=== PATIENT | female | born 1960 ===

== ENCOUNTER 2016-03-03 02:59 | Emergency (ER) | payer SELFPAY ==
[2016-03-03] MEDS ORDERED: ALBUTEROL/IPRATROPIUM 2.5/0.5 MG 3 ML/EACH DOSE ONE (03:25)
[2016-03-03] MEDS ORDERED: ACETAMINOPHEN 500 MG TABLET ONE (03:27)
--- NOTE | 2016-03-03 08:28 | RAD ---
CHEST 2 VIEWS HISTORY: Cough x3 days. Frontal and lateral chest radiographs dated 03/03/2016. COMPARISON: None. FINDINGS: LUNG VOLUMES: Hyperinflation of. FOCAL AIRSPACE OPACITY: No gross airspace consolidation. BRONCHOVASCULAR MARKINGS: Coarsened. PLEURAL EFFUSION: None. CARDIOMEDIASTINAL SILHOUETTE: Nonenlarged. Ectatic aortic arch. PNEUMOTHORAX: None identified. Findings of apical fibrosis. OSSEOUS STRUCTURES: No grossly destructive lesions. IMPRESSION: 1. No gross airspace consolidation. Coarsened bronchovascular markings, which can be seen in the setting of bronchitis, atypical/viral infection, or central airways disease. 2. Mild hyperinflation suggests obstructive pulmonary disease.
== END 2016-03-03 04:54 | disposition home or self-care (01) ==
LOC: ED 02:59
DX: J06.9 Acute upper respiratory infection, unspecified (principal); R05 Cough; F17.210 Nicotine dependence, cigarettes, uncomplicated
CPT/HCPCS: 71020; 94640; 99283 ×2; A9270

== ENCOUNTER 2016-03-20 00:42 | Emergency (ER) | payer SELFPAY ==
[2016-03-20] MEDS ORDERED: AZITHROMYCIN 250 MG TABLET ONE (01:30)
[2016-03-20] MEDS ORDERED: ALBUTEROL/IPRATROPIUM 2.5/0.5 MG 3 ML/EACH DOSE ONE (01:30)
[2016-03-20] MEDS ORDERED: PREDNISONE 20 MG TABLET ONE (01:30)
[2016-03-20] MEDS ORDERED: CODEINE/PROMETHAZINE 6.25mg/10mg/5ml SYRUP DOSE ONE (01:37)
[2016-03-20] MEDS ORDERED: HYDROCODONE /APAP 2.5 MG/108 MG PER 5 ML UDCUP ONE ×2 (01:51→01:59)
--- NOTE | 2016-03-20 07:47 | RAD ---
Exam: Two-view chest COMPARISON: 03/03/2016 INDICATION: Persistent cough, bilateral rib pain. FINDINGS: PA and lateral views of the chest were obtained. Cardiac silhouette is within normal limits and stable. Lungs are normally inflated. There is no focal airspace disease or pleural effusion. No acute displaced rib fracture is identified. IMPRESSION: No acute pulmonary process.
== END 2016-03-20 03:00 | disposition home or self-care (01) ==
LOC: ED 00:42
DX: R05 Cough (principal); R06.02 Shortness of breath; F17.210 Nicotine dependence, cigarettes, uncomplicated
CPT/HCPCS: 71020; 94640; 99283 ×2; J7512; A9270